=== PATIENT | female | born 1975 | race Caucasian/White ===

== ENCOUNTER → 2021-02-21 13:41 | Outpatient (CLI) | payer BC, SELFPAY ==
--- NOTE | ~2021-02-21 | MM_ITS ---
EXAMINATION: MM screening [facility] BI w reina HISTORY: Screening mammogram TECHNIQUE: Craniocaudal and mediolateral oblique 3-D tomosynthesis images were obtained and synthetic 2-D images were generated. CAD analysis was submitted and interpreted. COMPARISON: 11/03/2019, 10/03/2015, 09/21/2014 BREAST PARENCHYMAL COMPOSITION: There are scattered areas of fibroglandular density. FINDINGS: There is no evidence of suspicious mass, calcification, or architectural distortion to sugg est malignancy in either breast. There has been no suspicious interval change. IMPRESSION: 1. No mammographic evidence of malignancy. 2. Recommend routine screening mammography in one year. BI-RADS Category 1: Negative Reviewed, dictated and finalized at location A.
== END ==
PROVIDERS: PCP Family Medicine; Visit Provider Family Medicine
DX: Z12.31 Encounter for screening mammogram for malignant neoplasm of breast (principal)
CPT/HCPCS: 77063; 77067

== ENCOUNTER 2023-06-10 11:27 | Outpatient (CLI) | payer BC, SELFPAY ==
--- NOTE | ~2023-06-10 | US_ITS ---
Pelvic ultrasound. Clinical History: Excessive and frequent menstruation Technique: Realtime transabdominal and transvaginal scanning of the pelvis was performed. Color flow Doppler and Doppler spectral analysis were performed. Findings: The uterus is anteverted. The endometrial stripe has a thickness of 6 mm. No focal mass is identified. Neither ovary seen. No adnexal mass seen. There is no evidence of free fluid in the cul de sac. Impression: No significant abnormality seen. Reviewed, dictated and finalized at location . Impression: No significant abnormality seen.
== END 2023-06-10 11:28 ==
LOC: MICIMG 11:28
PROVIDERS: PCP Family Medicine; Visit Provider Obstetrics & Gynecology Gynecology
DX: N92.0 Excessive and frequent menstruation with regular cycle (principal)
CPT/HCPCS: 76830

== ENCOUNTER → 2023-08-27 14:39 | Outpatient (CLI) | payer BC, SELFPAY ==
--- NOTE | ~2023-08-27 | MM_ITS ---
EXAMINATION: MM screening [facility] BI w reina HISTORY: Screening mammogram TECHNIQUE: Craniocaudal and mediolateral oblique 3-D tomosynthesis images were obtained and synthetic 2-D images were generated. CAD analysis was submitted and interpreted. COMPARISON: 02/21/2021, 11/03/2019, 10/13/2015 BREAST PARENCHYMAL COMPOSITION: There are scattered areas of fibroglandular density. FINDINGS: No suspicious mass, calcification, or architectural distortion are identified in either saulo ast to suggest malignancy. There has been no suspicious interval change. IMPRESSION: 1. No mammographic evidence of malignancy. 2. Recommend routine screening mammography in one year. BI-RADS Category 1: Negative Reviewed, dictated and finalized at location A.
== END ==
PROVIDERS: PCP Family Medicine; Visit Provider Family Medicine
DX: Z12.31 Encounter for screening mammogram for malignant neoplasm of breast (principal)
CPT/HCPCS: 77063; 77067

== ENCOUNTER 2024-08-31 10:28 | Outpatient (CLI) | payer BC, SELFPAY ==
--- NOTE | ~2024-08-31 | MM_ITS ---
EXAMINATION: MM screening [facility] w [facility] HISTORY: Screening TECHNIQUE: Craniocaudal and mediolateral oblique 3-D tomosynthesis images were obtained and synthetic 2-D images were generated. CAD analysis was submitted and interpreted. COMPARISON: Comparison to multiple prior studies sequentially, with oldest reviewed study dated 08/26. BREAST PARENCHYMAL COMPOSITION: Not dense: There are scattered areas of fibroglandular density. FINDINGS: There is no evidence of suspicious mass, calcification, or architectural distortion to sugg est malignancy in either breast. There has been no suspicious interval change. IMPRESSION: 1. No mammographic evidence of malignancy. 2. Recommend routine screening mammography in one year. BI-RADS Category 1: Negative Reviewed, dictated and finalized at location B.
== END 2024-08-31 10:29 | disposition home or self-care (01) ==
PROVIDERS: PCP Family Medicine; Visit Provider Family Medicine
DX: Z12.31 Encounter for screening mammogram for malignant neoplasm of breast (principal)
CPT/HCPCS: 77063; 77067

== ENCOUNTER 2024-11-09 12:36 | Emergency (ER) | payer BC, SELFPAY ==
[2024-11-09 12:45] VITALS: BP 118/76; PULSE 88; RESP 16; TEMP 37.1; O2SAT 100
--- NOTE | 2024-11-09 13:12 | ED.WOUNDLAC ---
HPI - Wound/Laceration General Chief Complaint: Wound/Laceration Stated Complaint: Laceration to Chin Time Seen by Provider: 11/09/24 13:12 Source: patient Mode of arrival: ambulatory Limitations: no limitations History of Present Illness HPI narrative: 49-year-old female presented for complaint of laceration to the chin sustained just prior to arrival. She states she has tripped in the bathroom and struck her face on the cement tub with. Denies dental pain, neck pain, headache or any other concerns at this time. She applied pressure to site. Patient is on Brilinta for history of CAD and stent placement. UTD tetanus. Related Data Home Medications ?Medication ?Instructions ?Recorded ?Confirmed ?Last Taken ?Type albuterol sulfate 90 mcg/actuation 2 inhalation inhalation Q4-6H PRN 11/11/19 04/14/24 Unknown History breath activated powder inhaler,sensor (Proair Digihaler) aspirin 81 mg tablet,delayed 81 mg PO DAILY 11/11/19 04/14/24 Unknown History release metoprolol tartrate 25 mg tablet 25 mg PO DAILY 11/11/19 11/09/24 Unknown History ferric carboxymaltose (Injectafer) 750 mg IV WEEKLY 04/14/24 04/14/24 Unknown History Allergies Allergy/AdvReac Type Severity Reaction Status Date / Time morphine Allergy Severe swelling, Verified 04/14/24 15:23 itching, formication Review of Systems Review of Systems: CONSTITUTIONAL: Denies body aches, fever, chills, or sweats. EYES: Denies visual changes, redness, or discharge. ENT: Denies rhinorrhea, congestion CARDIOVASCULAR: Denies chest pain, palpitations, or edema. RESPIRATORY: Denies cough or dyspnea. SKIN: per HPI MUSCULOSKELETAL: Denies back pain, joint pain, or myalgia. NEUROLOGIC: Denies headache, numbness, tingling, or weakness. [facility] Past Medical History Medical History Iron deficiency anemia History of pica Pneumonia Neoplasm of uncertain behavior of skin NSTEMI (non-ST elevated myocardial infarction) V tach Nicotine dependence, unspecified, uncomplicated Other intermodal customer service (current) drug therapy Family History Family History Mother Diabetes mellitus Family history of hypothyroidism Social History Social History Smoking packs per day: 0.5 Smoking cigarettes per day: 10.0 Years smoked: 10 Smoking pack-years: 5.00 Smoking status: Former smoker (quit 2019) Tobacco type: cigarettes Smoking end date: 01/06/19 Alcohol intake: never Substance use: never Substance use type: does not use Do You Feel Safe in your Home?: Yes Lack of Transportation: No Lack of Food: Never True Current Housing: I Have Housing Concerned About Future Housing: No Difficulty Paying Gas/Electric Bills: No Difficulty Paying for Meds: No Currently Unemployed: No Education: High School Diploma/GED Difficulty w/ Childcare or Family Care: No Comments At time of signature, I have reviewed and agree with nursing past medical, surgical, social and family history unless otherwise noted. Please see nursing chart for further information. There is no relevant family history pertinent to the presenting complaint Exam Narrative: GENERAL: Well-appearing EYES: conjunctivae clear, and EOMI. ENT: Mucous membranes moist. Oropharynx without edema, erythema or lesions. NECK: Supple. No lymphadenopathy CHEST: Clear to auscultation. HEART: Regular rate and rhythm. SKIN: Warm, dry. chin with 1cm gaping irregular lac, bleeding. NEURO: Alert and oriented x3. Course Course Emergency Course: Patient is aware of diagnosis, understands and agrees to treatment plan. Anticipatory guidance given. Patient agrees to follow-up as directed and is aware of reasons to seek care at the emergency department. Portions of this record may have been created with voice recognition software Level of Care: Express Care Visit Vital Signs Vital signs: Vital Signs Temperature 98.8 F 11/09/24 12:45 Pulse Rate 88 11/09/24 12:45 Respiratory Rate 16 11/09/24 12:45 Blood Pressure 118/76 11/09/24 12:45 Pulse Oximetry 100 11/09/24 12:45 Oxygen Delivery Room Air 11/09/24 12:45 Temperature 98.8 F 11/09/24 12:45 Pulse Rate 88 11/09/24 12:45 Respiratory Rate 16 11/09/24 12:45 Blood Pressure 118/76 11/09/24 12:45 Pulse Oximetry 100 11/09/24 12:45 Oxygen Delivery Room Air 11/09/24 12:45 Reviewed Procedures Laceration chin: Date: 11/09/24 Size (cm): 1 Description: irregular and clean Depth: simple, single layer Local Anesthetic: lidocaine 1% Amount of anesthesia used (mL): 5 Pre-repair: wound explored and irrigated ====== Skin Level ====== Skin layer closed with: nylon Size (cm): 5-0 Number of sutures: 5 Technique: simple, interrupted ====== Subcutaneous Layer ====== ====== Muscle Layer ====== ====== Tendon Layer ====== Dressing: The procedure and its alternatives were reviewed with patient. Risks were reviewed with patient including infection and damage to nearby structures. Patient provided verbal informed consent. The patient was positioned appropriately. Sterile drapes applied to maintain sterile field. Wound was explored for abnormalities including infection and foreign bodies. Sutures placed with wound edges approximated. Patient tolerated well, no complications. Dressing applied per RN. MDM - Wound/Laceration MDM Narrative Medical decision making narrative: Discussed physical exam findings , patient tolerated suture placement and dressing applied.. Advised supportive measures and signs/symptoms to go to the ER. Pt is appropriate for outpt treatment and f/u. Discharge Plan Discharge Clinical Impression: Chin laceration Qualifiers: Encounter type: initial encounter Qualified Code(s): S01.81XA - Laceration without foreign body of other part of head, initial encounter Patient Disposition: Home, Self-Care Condition: Stable Instructions: Antibiotic Form, Facial Laceration (ED) Additional Instructions: Your sutures need to be removed in 7-10 days. Wear the dressing that has been applied for the first 24 hours to allow a scab to start forming. After this, you may remove and wash as normal with soap and water. Do NOT wash with peroxide or alcohol. Take tylenol for pain Follow up with your PCP and the Plastic Surgeon Dr Tran ? [address], [place] Go to the ER with any signs of infection such as redness, swelling, increased pain, or drainage. Patient Language: [place]orese Prescriptions: New cephalexin 500 mg capsule 500 mg PO Q8H 5 Days Qty: 15 0RF No Action Brilinta 60 mg tablet 60 mg PO Q12H Qty: 180 3RF aspirin 81 mg tablet,delayed release (DR/EC) 81 mg PO DAILY metoprolol tartrate 25 mg tablet 25 mg PO DAILY Proair Digihaler 90 mcg/actuation aero powdr breath act w/sensor 2 inhalation INHALATION Q4-6H PRN Injectafer 50 mg iron/mL solution 750 mg IVPB WEEKLY cyanocobalamin (vitamin B-12) 1,000 mcg/mL solution 1,000 mcg subcut MONTHLY Qty: 30 0RF lisinopril 2.5 mg tablet See Rx Instructions .ROUTE .COMPLEX Qty: 90 1RF Dose Instruction: TAKE 1 TABLET BY MOUTH EVERY DAY Rx Instructions: TAKE 1 TABLET BY MOUTH EVERY DAY atorvastatin 40 mg tablet 40 mg PO DAILY Qty: 90 3RF (DME) Syringe 3cc/22Gx3/4 3 mL 22 gauge x 3/4 syringe See Rx Instructions .Route Qty: 100 0RF Rx Instructions: As directed cyanocobalamin (vitamin B-12) 1,000 mcg/mL solution 1,000 mcg subcut MONTHLY Qty: 30 0RF hydroxyzine HCl 25 mg tablet See Rx Instructions .ROUTE .COMPLEX Qty: 270 1RF Dose Instruction: TAKE 1 TABLET BY MOUTH THREE TIMES A DAY NEEDED Rx Instructions: TAKE 1 TABLET BY MOUTH THREE TIMES A DAY NEEDED OneTouch Ultra Test Strip See Rx Instructions .ROUTE .COMPLEX Qty: 100 3RF Dose Instruction: USE TO TEST ONCE DAILY AND NEEDED FOR SYMPTOMS Rx Instructions: USE TO TEST ONCE DAILY AND NEEDED FOR SYMPTOMS (DME) Carepoint Luer Lock Syr-needle 3 mL 25 gauge x 1 syringe See Rx Instructions .Route Qty: 100 0RF Rx Instructions: As directed sertraline 50 mg tablet 50 mg PO DAILY Qty: 90 1RF metformin 1,000 mg tablet See Rx Instructions .ROUTE .COMPLEX Qty: 180 1RF Dose Instruction: TAKE 1 TABLET BY MOUTH TWICE A DAY WITH MEALS Rx Instructions: TAKE 1 TABLET BY MOUTH TWICE A DAY WITH MEALS dextroamphetamine-amphetamine [Adderall XR] 30 mg capsule,extended release 24hr 30 mg PO DAILY Qty: 30 0RF Rx Instructions: August dextroamphetamine-amphetamine [Adderall XR] 30 mg capsule,extended release 24hr 30 mg PO DAILY Qty: 30 0RF Rx Instructions: September dextroamphetamine-amphetamine 30 mg capsule,extended release 24hr 30 mg PO QAM Qty: 30 0RF Rx Instructions: October Ozempic 1 mg/dose (4 mg/3 mL) pen injector See Rx Instructions .ROUTE .COMPLEX Qty: 3 0RF Dose Instruction: 1 MG (0.75 ML) SUBCUTANEOUSLY WEEKLY Rx Instructions: 1 MG (0.75 ML) SUBCUTANEOUSLY WEEKLY Follow-up/Referrals: Shelbi Holman MD [Primary Care Provider] - Time of Disposition: 14:01
== END 2024-11-09 14:07 | disposition home or self-care (01) ==
PROVIDERS: Emergency Provider Nurse Practitioner Family; PCP Family Medicine
DX: S01.81XA Laceration without foreign body of other part of head, initial encounter (principal); W01.198A Fall on same level from slipping, tripping and stumbling with subsequent striking against other object, initial encounter; Z87.891 Personal history of nicotine dependence; I25.2 Old myocardial infarction; Z85.828 Personal history of other malignant neoplasm of skin; Z79.82 Long term (current) use of aspirin
CPT/HCPCS: 12011; 99213; G0463; J2003

== ENCOUNTER 2025-09-14 15:24 | Outpatient (CLI) | payer BC, SELFPAY ==
[2025-09-14 19:05] LABS: Hematocrit 30.5 % (37.0-47.0); Hemoglobin 9.6 g/dL (12.0-15.0); Immature Granulocyte Percent A 0.2 % (0-0.5); Lymphocytes Absolute Auto 1.00 K/mm3 (0.9-3.2); Mean Corpuscular HGB Conc 31.5 g/dl (32-36); Mean Corpuscular Hemoglobin 28.9 pg (26-34); Mean Corpuscular Volume 91.9 fl (80-100); Nucleated Red Blood Cells Absolute Auto 0.000 K/mm3 (0.0-0.012); Nucleated Red Blood Cells Perc 0.0 % (0.0-0.2); Platelet Count Result 287 k/mm3 (150-375); Red Blood Count 3.32 M/mm3 (4.2-5.4); White Blood Count 4.8 K/mm3 (4.5-10.0)
--- OUTSIDE RECORDS SUMMARY | 2025-09-14 19:21 | XMS_ITS | Clinical Summary ---
Author Organization [facility] Address [address] [place] [address] Care Team Providers Care Plant Guide Name Role Phone Unavailable Primary Care Provider Unavailabl e Source Comments [facility],non-owned Affiliates and Associated Physician Practices is amultiple site organization consisting of ambulatory clinics and hospital sitesin [place], [place], [place] and [place]. This disclosure is being madepursuant to the Care Everywhere program and may not contain all information available regarding this patient. 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 Gender Identity Not on file Sexual Orientation Not on file Plan of Treatment Health Maintenance Due Date Last Done Comments COLOGUARD (AGES 45-75) - COL ON CA SCREENING 1973 COLON MONITORING 1973 COLONOSCOPY - COLON CA SCREENING 1973 CT COLONOGRAPHY - COLON CA SCREENING 1973 Colorectal Cancer Screening 1973 FIT - COLON CA SCREENING 1973 FLEX SIG - COLON CA SCREENING 1973 LIPID TESTING 1973 MAMMOGRAM 1973 HIV SCREENING 1988 HEPATITIS C SCREENING 05/11/1991 DTAP/TDAP/TD VACCINES (1 - Tdap) 1992 HEPATITIS B VACCINE (1 of 3 - 19+ 3-dose series) 1992 PNEUMOCOCCAL VACCINE 50+ (1 of 1 - PCV) 2023 ZOSTER VACCINE (1 of 2) 2023 DEPRESSION SCREENING 11/25/2024 COVID-19 VACCINE (1 - 2023-2 5 season) 2025 INFLUENZA VACCINE (#1) 2025 HIB VACCINE Aged Out No longer eligi ble based on patient's age to complete this topic HPV VACCINE Aged Out No longer eligi ble based on patient's age to complete this topic MENINGOCOCCAL (Group B) VACC INE SHARED DECISION-MAKING Aged Out No longer eligibl e based on patient's age to complete this topic MENINGOCOCCAL GROUPS A/C/Y/W VACCINE Aged Out No longer eligible b ased on patient's age to complete this topic [place] [address] [address] [address]
--- OUTSIDE RECORDS SUMMARY | 2025-09-14 19:21 | XMS_ITS | Clinical Summary ---
Author Organization [facility] Address [address] [place] [address] Care Team Providers Care Retort Cooler Name Role Phone Willam Holman MD Primary Care Provider [phone] Allergies No known active allergies Medications raNITIdine (ZANTAC) 150 mg tablet Take 150 mg by mouth 2 (two) times a day. Active metFORMIN (GLUCOPHAGE) 500 mg tablet Take 1,000 mg by mouth 2 (two) times a day with meals. Active hydrOXYzine (ATARAX) 25 mg tabletIndicatio ns:Pruritus of Skin Take 25 mg by mouth 3 (three) times a day as needed for itching. Active oxyCODONE-aceta minophen (PERCOCET) 5-325 mg per tabletIndicatio ns:Pain Take 1-2 tablets by mouth every 4 (four) hours as needed for pain. 30 tablet 8 Active Additional Information Patient not taking.Reported on 01/29/2018 oxyCODONE (ROXICODONE) 5 mg immediate release tabletIndicatio ns:Pain Take 1 tablet (5 mg total) by mouth every 6 (six) hours as needed for pain. 40 tablet 8 Active Additional Information Patient not taking.Reported on 01/29/2018 ondansetron (ZOFRAN) 4 mg tablet Take 1 tablet (4 mg total) by mouth every 8 (eight) hours as needed for nausea or vomiting. 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 He had been evaluated in [facility]. In the past had iron transfusions Will repeat CBC, iron studies and ferritin, B12 and folate levels, Will consider transfusion if significant drop of hemoglobin less than 8 Diabetes mellitus 01/12/2018 Assessment & Plan (01/12/2018 1:38 AM CASINO WORKER): FAIRLY CONTROLLED Check hemoglobin A1c Will hold oral metformin Start corrective low-dose of insulin sliding scale Cholecystitis, acute 01/12/2018 Assessment & Plan (01/12/2018 1:37 AM CASINO WORKER): Acute calculous cholecystitis, no evidence of obstruction or ascending cholangitis Start on IV fluids with normal saline IV antibiotics with Zosyn NPO Surgery was consulted in [place], Dr. Clarke to evaluate the patient in a.m., possibly to OR tomorrow Surgical History Surgery Date Site/Laterality Comments SECTION x2 TUBAL LIGATION CHOLECYSTECTOMY 01/13/2018 Medical History Medical History Date Comments Diabetes mellitus Family History Medical History Relation Name Comments Hypertension Brother Diabetes Father Heart disease Father Diabetes Mother Heart attack Mother Relation Name Status Comments Brother Father Mother Social History Tobacco Use Types Packs/Day Years Used Date Smoking Tobacco: Every Day Cigarettes 1 10 Smokeless Tobacco: Never Alcohol Use Standard Drinks/Week Comments No 0 (1 standard drink = 0.6 oz pur e alcohol) Comments No Sex and Gender Information Value Date Recorded Sex Assigned at Not on file Legal Sex Female 10:47 PM CASINO WORKER Gender Identity Not on file Sexual Orientation Not on file Obstetrics History Last Filed Vital Signs Vital Sign Reading Time Taken Comments Blood Pressure 126/84 01/29/2018 10:06 AM CASINO WORKER Pulse 71 01/13/2018 2:40 PM CASINO WORKER Temperature 36.4 C (97.6 F) 01/13/2018 2:40 PM CASINO WORKER Respiratory Rate 16 01/13/2018 2:4 0 PM CASINO WORKER Oxygen Saturation 94% 01/13/2018 2:40 PM CASINO WORKER Inhaled Oxygen Concentration - - Weight 70.7 kg (155 lb 12.8 oz) 018 10:06 AM CASINO WORKER Height 152.4 cm (5') 01/29/2018 10:06 AM CASINO WORKER Body Mass Index 30.43 01/29/2018 10:06 AM CASINO WORKER Plan of Treatment Not on file Insurance [employer] [place] Advance Directives For more information, please contact: [phone] * Full Code (Latest Code Status on File) Date Activated Date Inactivated Comments 01/11/2018 11:49 PM 01/13/2018 7:58 PM Care Teams Retort Cooler Relationship Specialty Start Date End Date Willam Holman MD PCP - General Family Medicine 01/11/18
[2025-09-14 20:46] LABS: Thyroid Stimulating Hormone Reflex 1.950 uIU/mL (0.465-4.68)
[2025-09-14 20:50] LABS: Ferritin 5.48 ng/mL (11.1-264)
== END 2025-09-14 15:25 | disposition home or self-care (01) ==
LOC: ANHGOSHLAB 15:25
PROVIDERS: PCP Family Medicine; Visit Provider Family Medicine
DX: R53.83 Other fatigue (principal); Z78.0 Asymptomatic menopausal state
CPT/HCPCS: 36415; 82306; 82728; 84443; 85025